=== PATIENT | male | born 1955 | race Caucasian/White ===

== ENCOUNTER 2021-07-09 06:33 | Day surgery (SDC) | payer OTHER, MEDICARE ==
[~2021-07-09] VITALS: Ht 172.7 cm; Wt 89.8 kg
--- NOTE | ~2021-07-09 | O ---
[facility] [place] [address] [place] [address] OPERATIVE REPORT Name: KRISTINA JOHN Room #: 150-3 [facility] M..#: [id number] Admission: 07/09/21 Attend Phys: Vinnie Ramirez MD Discharge: Date of : 53 Report #: [id number] THIS REPORT FOR: cc: Marlin Harrison MD, Cora A. MD Shapiro, Peter E. MD ~ DATE OF SERVICE: 07/09/2021 PREOPERATIVE DIAGNOSIS: Acute and chronic maxillary and ethmoid sinusitis. POSTOPERATIVE DIAGNOSIS: Acute and chronic maxillary and ethmoid sinusitis. OPERATIVE PROCEDURE: Endoscopic left maxillary antrostomy with removal of tissue and left anterior ethmoidectomy using general by laryngeal mask. DESCRIPTION OF PROCEDURE: The patient was taken to the operating room and placed in supine position. General anesthesia was induced by laryngeal mass. Once adequate general anesthesia was obtained, local nasal anesthesia was induced by submucoperiosteal injection 1% lidocaine with 1:100,000 epinephrine and topical application of cocaine solution. The patient was then draped in a sterile manner. The nasal endoscope was used to visualize the left nasal cavity. There was purulence in the middle meatus. The uncinate process was bulging. The uncinate process was removed using the microdebrider and the natural opening. The maxillary sinus was located. It was enlarged by removing the soft fontanelle posteriorly and inferiorly. Thick purulent poured out of the maxillary sinus. A curved blade on the microdebrider was used to remove polypoid tissue from the natural opening of the maxillary sinus and within the sinus and all of this purulence was suctioned and ethmoidectomy was performed by removing ethmoidal bulla and following the ethmoid air cells back to the basal lamella and then upward at the root of the uncinate process to remove the remainder of the anterior ethmoid air cells. FloSeal was placed into the ethmoid cavity and middle meatus for hemostasis. The patient tolerated the procedure well. Blood loss was probably 20 mL. The patient was then awoken to the recovery room in stable condition for postoperative monitoring. By: 0728 0742 Vinnie Ramirez MD /jessika
[~2021-07-09 06:33] MED LIST: ALPRAZOLAM 0.0.25 M1 PO; BUPROPION XL300 MG PO; CLARITIN10 M3 PO; DESIPRAMINE 2525 M1 PO; DOXAZOSIN MESYLA4 MG PO; FISH OIL 1,0001 EAC9 PO; METFORMIN HCL500 MG PO; PRESERVISION A1 EACH PO; PRINIVIL40 MG PO; ROSUVASTATIN CA20 MG PO
[2021-07-09 07:44] VITALS: BP 147/76
--- NOTE | 2021-07-09 07:50 | EKG ---
[address] [address] ELECTROCARDIOGRAM REPORT Name: KRISTINA JOHN Room #: 150-3 [facility]#: [id number] Admission: 07/09/21 Attend Phys: Vinnie Ramirez MD Discharge: Date of : 53 Report #: [id number] [facility] Test Date: 2021-07-09 Test Time: 07:40:07 Pat Name: KRISTINA JOHN Department: Room: [facility] 3 Gender: M Flosser: DENYS : 1955 Requested By: Shawna Wang Order Number: [id number] MD: Jeff Hercules Measurements Intervals [place] Rate: 75 P: 30 WI: 178 QRS: 25 QRSD: 102 T: 49 QT: 370 QTc: 414 Interpretive Statements Sinus rhythm Normal tracing No previous ECG available for comparison Electronically Signed On 07-09-2021 7:50:37 UNDERWRITING ACCOUNT REPRESENTATIVE by Jeff Hercules [email or web address] <ELECTRONICALLY SIGNED> By: Jeff Hercules MD, [facility] 07/09/21 0750 0740 0740 Jeff Hercules MD, FACC /EPI
--- NOTE | 2021-07-09 08:28 | H ---
[facility] [place] [address] [place] [address] HISTORY AND PHYSICAL Name: KRISTINA JOHN Room #: 150-3 [facility] M..#: [id number] Admission: 07/09/21 Attend Phys: Vinnie Ramirez MD Discharge: Date of : 53 Report #: [id number] THIS REPORT FOR: cc: Marlin Harrison MD, Cora A. MD Shapiro, Peter E. MD ~ DATE OF SERVICE: 07/09/2021 DATE OF PROCEDURE: 07/09/2021 HISTORY OF PRESENT ILLNESS: The patient came down with upper respiratory symptoms and symptoms of a sinus infection in early April. He had foul drainage from his nose in the back of his throat with left-sided congestion and discomfort. He has been treated with a couple of courses of antibiotics. A CT scan shows complete opacification of the left maxillary sinus with bulging of the medial wall of the sinus into the ostiomeatal area. He had mild mucous membrane thickening in the anterior ethmoid air cells and he had some bone loss along the floor in the area of a previous root canal. PAST MEDICAL HISTORY: Otherwise, significant for diabetes and high blood pressure. MEDICATIONS: Include Claritin, Wellbutrin, rosuvastatin. ALLERGIES: HE IS ALLERGIC TO PENICILLIN. PHYSICAL EXAMINATION: His oropharynx and oral cavity were clear. Nasal endoscopy was normal on the right side. He had bulging of the uncinate process into the middle meatus with opaque mucus on the left side. IMPRESSION: Acute and chronic left maxillary and ethmoid sinusitis. PLAN: Left maxillary antrostomy and anterior ethmoidectomy. <ELECTRONICALLY SIGNED> By: Vinnie Ramirez MD 07/09/21 0828 1252 1300 Vinnie Ramirez MD /nt
[2021-07-09] MEDS ORDERED: CEPHALEXIN500 MG PO (08:33)
[2021-07-09] MEDS ORDERED: NORCO7.5 PO (08:33)
[2021-07-09 09:00] VITALS: BP 147/76
== END 2021-07-09 10:10 | disposition home or self-care (01) ==
LOC: OR 06:33 → TBA 06:34 → OR 09:04
PROVIDERS: ATTEND Otolaryngology
DX: J01.20 Acute ethmoidal sinusitis, unspecified (principal); J01.00 Acute maxillary sinusitis, unspecified; J32.2 Chronic ethmoidal sinusitis; J32.0 Chronic maxillary sinusitis; I10 Essential (primary) hypertension; E78.5 Hyperlipidemia, unspecified; E11.9 Type 2 diabetes mellitus without complications; G47.30 Sleep apnea, unspecified; Z85.828 Personal history of other malignant neoplasm of skin; Z98.890 Other specified postprocedural states; Z79.899 Other long term (current) drug therapy; Z20.822 Contact with and (suspected) exposure to COVID-19; Z88.0 Allergy status to penicillin
CPT/HCPCS: 50010; 50101; 50386; 50398; 51751; 56635; 62110; 62900; 70005

== ENCOUNTER → 2021-08-16 | Outpatient (CLI) | payer OTHER, MEDICARE ==
[~2021-08-16] MED LIST changes: +CEPHALEXIN500 MG PO; +NORCO7.5 PO
--- NOTE | 2021-08-20 15:07 | PATH ---
[facility] [address] [place] [address] PATHOLOGY RPT PROCEDURE Name: KRISTINA JOHN Room #: REG JUAN MANUEL Garrett.#: [id number] Admission: 08/16/21 Date of : 53 Discharge: Report #: [id number] Path Case #: [id number] Note [facility] Accession Number: [id number] TESTS RESULT FLAG UNITS REF RANGE LAB Clinician Provided Cytology Information No. of containers..01 Other (Miscellaneous) Source: LEFT MID THYROID DIAGNOSIS: LEFT MID THYROID NEGATIVE FOR MALIGNANT CELLS. BETHESDA CATEGORY II. SPECIMEN CONSISTS OF BENIGN FOLLICULAR CELLS,FEW HURTHLE CELLS,LYMPHOCYTES, HEMOSIDERIN-LADEN MACROPHAGES, COLLOID, AND BLOOD. 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 Pathologist ICD10: 02 E04.1 Signed out by: 02 Lyndsey Mendoza MD, Pathologist NPI- [id number] Performed by: 01 Maegan Denis Allergist/Immunologist ([facility]) Gross description: 01 20ML, PALE RED, HAZY /LCS 08/17/2021 0238 Local FLAG LEGEND: L-Low Normal,H-High Normal,LL-Alert Low,HH-Alert High <-Panic Low,>-Panic High,A-Abnormal,AA-Critical Abnormal Performed at: [address] [place] [address] Kurt Sykes MD, [address] [address] Lyndsey Mendoza MD, Specimen Comment: A courtesy copy of this report has been sent to [phone], [phone] Specimen Comment: [phone] Specimen Comment: Report sent to / DR YEAGER Performed at: [address], [place], [place] [id number] MD Kurt Sykes MD Phone: [phone]
== END | disposition home or self-care (01) ==
LOC: ULTRA 10:08
PROVIDERS: ATTEND Otolaryngology Plastic Surgery within the Head & Neck
DX: E04.1 Nontoxic single thyroid nodule (principal); J32.8 Other chronic sinusitis; Z79.899 Other long term (current) drug therapy; Z88.0 Allergy status to penicillin